=== PATIENT | female | born 2005 | race Caucasian/White ===

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

== ENCOUNTER → 2023-05-04 | Outpatient (CLI) | payer MEDICAID, OTHER ==
[~2023-05-04] MED LIST changes: +ACET325C5 PO; +PRENTAB9 PO
[2023-05-04 14:50] LABS: HEMOGLOBIN A1c 5.2 % (4.0-6.0)
[2023-05-04 15:00] LABS: HCG, SERUM QUALITATIVE NEGATIVE (NEGATIVE)
[2023-05-04 15:02] LABS: ALKALINE PHOSPHATASE 101 U/L (46-116); ALT/SGPT 37 U/L (7.0-40); AST/SGOT 21 U/L (<34); BILIRUBIN,TOTAL 0.4 MG/DL (0.3-1.2); BLOOD UREA NITROGEN 17 MG/DL (9-23); CALCIUM LEVEL 9.3 MG/DL (8.5-10.1); CARBON DIOXIDE LEVEL 28 MMOL/L (20-31); CHLORIDE LEVEL 103 MMOL/L (98-107); CREATININE FOR GFR 0.72 MG/DL (0.55-1.30); GLUCOSE, FASTING 92 MG/DL (60-100); POTASSIUM SERUM 4.2 MMOL/L (3.5-5.1); SODIUM LEVEL 135 MMOL/L (136-145); TOTAL PROTEIN 7.2 G/DL (5.7-8.2)
[2023-05-04 15:04] LABS: FREE T4 0.91 NG/DL (0.83-1.43); PROLACTIN 7.72 NG/ML; THYROID STIMULATING HORMONE 17.743 uIU/ML (0.48-4.17)
== END ==
LOC: M PLALAB 09:56
PROVIDERS: ATTEND Nurse Practitioner Family
DX: N91.1 Secondary amenorrhea (principal)

== ENCOUNTER → 2023-05-26 | Outpatient (CLI) | payer OTHER ==
[2023-05-26 19:08] LABS: FREE T4 0.85 NG/DL (0.83-1.43); THYROID STIMULATING HORMONE 8.621 uIU/ML (0.48-4.17)
== END ==
LOC: M PLALAB 15:56
PROVIDERS: ATTEND Nurse Practitioner Family
DX: E03.9 Hypothyroidism, unspecified (principal)

== ENCOUNTER → 2023-09-13 | Outpatient (CLI) | payer OTHER ==
[~2023-09-13] MED LIST changes: +NITR100C3 PO; -NITR1CAP11 PO
[2023-09-13 17:58] LABS: FREE T4 1.02 NG/DL (0.83-1.43); THYROID STIMULATING HORMONE 1.487 uIU/ML (0.48-4.17)
== END ==
LOC: M PLALAB 15:41
PROVIDERS: ATTEND Nurse Practitioner Family
DX: E03.9 Hypothyroidism, unspecified (principal)

== ENCOUNTER 2023-12-29 18:08 | Emergency (ER) | payer OTHER ==
[~2023-12-29] VITALS: Ht 157.5 cm; Wt 105.5 kg
[2023-12-29] MEDS ORDERED: AZIT-12 PO (18:20)
[2023-12-29] MEDS ORDERED: AMOX875T2 PO (18:20)
[2023-12-29] MEDS ORDERED: PRED20TA PO (18:20)
[2023-12-29] MEDS ORDERED: BENZ200C70 PO (18:20)
[2023-12-29] MEDS: IPRATROPIUM 0.5MG/ALBUTEROL 2.5MG INH SOL UD 3ML (DUONEB) NEB ONE ×2 (21:07→21:40)
[2023-12-29] MEDS: predniSONE 20 MG TAB PO ONE (21:40)
[2023-12-29 21:53] VITALS: O2SAT 98
[2023-12-29 22:05] VITALS: BP 135/66; TEMP 97.5
== END 2023-12-29 22:52 | disposition home or self-care (01) ==
LOC: M ED 18:08
DX: J45.901 Unspecified asthma with (acute) exacerbation (principal); B34.1 Enterovirus infection, unspecified; F17.210 Nicotine dependence, cigarettes, uncomplicated; Z91.09 Other allergy status, other than to drugs and biological substances; Z79.1 Long term (current) use of non-steroidal anti-inflammatories (NSAID); Z79.51 Long term (current) use of inhaled steroids; Z79.2 Long term (current) use of antibiotics; Z79.52 Long term (current) use of systemic steroids; Z79.810 Long term (current) use of selective estrogen receptor modulators (SERMs)
CPT/HCPCS: 71046; 87486; 87581; 87633; 87798; 94760; 99284; J7512

== ENCOUNTER → 2024-10-28 | Outpatient (REF) | payer OTHER, MEDICAID ==
[~2024-10-28] MED LIST changes: +AMOX875T2 PO; +AZIT-12 PO; +BENZ200C70 PO
[2024-10-28 18:29] LABS: Trichomonas vaginalis (AMP) NOT DETECTED (NEGATIVE)
[2024-10-28 18:36] LABS: HCG, SERUM QUANTITATIVE < 2.6 MIU/ML (<4.2)
[2024-10-28 18:39] LABS: TOTAL 25(OH) VITAMIN D 24.0 NG/ML (20.0-100.0)
[2024-10-28 18:41] LABS: ALT/SGPT 62 U/L (7.0-40); AST/SGOT 45 U/L (<34); CALCIUM LEVEL 9.4 MG/DL (8.5-10.1); CARBON DIOXIDE LEVEL 30 MMOL/L (20-31); CHLORIDE LEVEL 104 MMOL/L (98-107); CHOLESTEROL LEVEL 196 MG/DL (<200); CHOLESTEROL RISK RATIO 6.06 (<5); CREATININE FOR GFR 0.77 MG/DL (0.55-1.30); GLOMERULAR FILTRATION RATE > 90.0 (>60); LDL CHOLESTEROL 114.9 MG/DL (<100); NON-HDL-C 163.7 MG/DL; POTASSIUM SERUM 4.2 MMOL/L (3.5-5.1); SODIUM LEVEL 140 MMOL/L (136-145); TRIGLYCERIDES LEVEL 244 MG/DL (<150)
[2024-10-28 18:51] LABS: GC DNA AMPLIFICATION NEGATIVE (NEGATIVE)
[2024-10-28 19:04] LABS: HIV 1&2 SCREEN NEGATIVE (NEGATIVE)
[2024-10-28 19:11] LABS: HEPATITIS C VIRUS ABY INDEX 0.05 INDEX (<0.8)
[2024-10-28 19:26] LABS: ESTIMATED AVERAGE GLUCOSE 105.0 MG/DL (60-110)
== END ==
LOC: M LAB REF 16:14
PROVIDERS: ATTEND Physician Assistant
DX: E55.9 Vitamin D deficiency, unspecified (principal); E66.9 Obesity, unspecified; N92.5 Other specified irregular menstruation; Z11.9 Encounter for screening for infectious and parasitic diseases, unspecified

== ENCOUNTER → 2025-01-08 | Outpatient (REF) | payer OTHER, MEDICAID ==
[2025-01-08 14:30] LABS: BASO # 0.0 10^3/uL (0.0-0.2); BASO % 0.2 % (0.0-1.0); EOS # 0.4 10^3/uL (0.0-0.5); EOS % 4.3 % (0.0-3.0); LYMPH # 1.7 10^3/uL (1.5-5.0); LYMPH % 18.4 % (24.0-44.0); MONO # 0.7 10^3/uL (0.0-0.8); MONO % 7.1 % (2.0-8.0); NEUTROPHILS # 6.4 10^3/uL (1.5-8.5); NEUTROPHILS % 69.8 % (36.0-66.0); PLATELET COUNT, AUTOMATED 331 10^3/uL (150-450)
[2025-01-08 14:37] LABS: ALT/SGPT 38 U/L (7.0-40); AST/SGOT 28 U/L (<34); CALCIUM LEVEL 9.5 MG/DL (8.5-10.1); CARBON DIOXIDE LEVEL 28 MMOL/L (20-31); CHLORIDE LEVEL 101 MMOL/L (98-107); CREATININE FOR GFR 0.76 MG/DL (0.55-1.30); GLOMERULAR FILTRATION RATE > 90.0 (>60); IRON (FE) 89 UG/DL (50-170); PERCENT SATURATION 26.1 % (13.2-45.0); POTASSIUM SERUM 3.9 MMOL/L (3.5-5.1); SODIUM LEVEL 140 MMOL/L (136-145)
== END ==
LOC: M LAB REF 14:06
PROVIDERS: ATTEND Physician Assistant
DX: D64.9 Anemia, unspecified (principal); N92.5 Other specified irregular menstruation